=== PATIENT | female | born 1960 | race Two or more races ===

== ENCOUNTER 2023-04-28 09:04 | Outpatient (CLI) | payer OTHER ==
[2023-04-28 11:05] LABS: PH,URINE 5.5 (5.0-8.0); URINE APPEARANCE Clear; URINE BILIRRUBIN Negative (NEGATIVE); URINE BLOOD NHT; URINE COLOR Yellow; URINE GLUCOSE Negative (NEGATIVE); URINE LEUKOCYTE Negative; URINE NITRATE Negative; URINE PROTEIN Negative (NEGATIVE); URINE UROBILINOGEN 0.2 E.U./dl
[2023-04-28 11:06] LABS: URINE BACTERIA 46.6 uL (0.0-1933); URINE EPITHELIAL CELLS 4.4 uL (0.0-38.8); URINE RBC 35.6 uL (0.0-20.8); URINE WBC 2.3 uL (0.0-23.2)
[2023-04-28 11:07] LABS: INR 0.97; PARTIAL THROMBOPLASTIN TIME 28.9 SECONDS (22.0-34.0); PROTHROMBIN TIME 10.2 SECONDS (9.0-11.5)
[2023-04-28 11:25] LABS: ALBUMIN 3.6 gm/dL (3.4-5.0); BILIRUBIN TOTAL 0.67 mg/dL (0.3-1.2); CALCIUM 9.1 mg/dL (8.5-10.1); CREATININE SERUM 0.64 mg/dL (0.55-1.02); GFR 93.72; POTASSIUM 4.2 mEq/L (3.5-5.1); TOTAL PROTEIN 7.6 gm/dL (6.4-8.2)
[2023-04-28 12:49] LABS: HEMATOCRIT 39.8 % (36.0-45.00); HEMOGLOBIN 12.6 g/dL (12.0-15.00); MEAN CELL VOLUME 82.9 fL (80.00-100.00); MEAN CORPUSCULAR HEMOGLOBIN 26.3 pg (27.00-32.0); MEAN CORPUSCULAR HGB CONC 31.7 g/dl (32.0-36.0); PLATELET COUNT 212 K/uL (150-450); RED CELL DISTRIBUTION WIDTH 14.9 % (11.5-14.5)
[2023-04-30 13:15] LABS: MANUAL PLATELET COUNT 290
[2023-04-30 13:16] LABS: PLATELET ESTIMATE NORMAL (NORMAL)
[2023-04-30 13:41] LABS: FOLIC ACID > 20.00 ng/ml (4.78-20)
== END 2023-04-28 09:20 | disposition home or self-care (01) ==
LOC: LAB 09:04
PROVIDERS: ATTEND Obstetrics & Gynecology Gynecology
DX: Z01.812 Encounter for preprocedural laboratory examination (principal); Z01.818 Encounter for other preprocedural examination; D50.8 Other iron deficiency anemias; R79.9 Abnormal finding of blood chemistry, unspecified; I10 Essential (primary) hypertension; R74.02 Elevation of levels of lactic acid dehydrogenase [LDH]; K76.89 Other specified diseases of liver; D51.8 Other vitamin B12 deficiency anemias; B20 Human immunodeficiency virus [HIV] disease; B17.9 Acute viral hepatitis, unspecified; Z11.59 Encounter for screening for other viral diseases; B02.9 Zoster without complications; D51.3 Other dietary vitamin B12 deficiency anemia; Z18.12 Retained nonmagnetic metal fragments

== ENCOUNTER → 2023-04-28 | Outpatient (CLI) | payer OTHER | END | disposition home or self-care (01) | LOC: RAD 09:43 | PROVIDERS: ATTEND Obstetrics & Gynecology Gynecology | DX: R07.89 Other chest pain (principal) ==

== ENCOUNTER → 2023-05-07 08:58 | Outpatient (CLI) | payer OTHER | END | disposition home or self-care (01) | LOC: EKG 08:58 | PROVIDERS: ATTEND Obstetrics & Gynecology Gynecology | DX: Z01.810 Encounter for preprocedural cardiovascular examination (principal) ==

== ENCOUNTER → 2024-06-28 11:57 | Outpatient (CLI) | payer OTHER ==
[2024-06-28 13:21] LABS: HEMATOCRIT 38.3 % (36.0-45.00); HEMOGLOBIN 12.7 g/dL (12.0-15.00); MEAN CELL VOLUME 81.8 fL (80.00-100.00); MEAN CORPUSCULAR HEMOGLOBIN 27.2 pg (27.00-32.0); MEAN CORPUSCULAR HGB CONC 33.2 g/dl (32.0-36.0); PLATELET COUNT 213 K/uL (150-450); RED BLOOD COUNT 4.68 M/uL (4.00-6.00); RED CELL DISTRIBUTION WIDTH 14.9 % (11.5-14.5)
[2024-06-28 13:37] LABS: PROTHROMBIN TIME 10.9 SECONDS (9.0-11.5)
[2024-06-28 13:42] LABS: ALBUMIN 3.7 gm/dL (3.4-5.0); BILIRUBIN TOTAL 0.79 mg/dL (0.3-1.2); CALCIUM 8.9 mg/dL (8.5-10.1); CREATININE SERUM 0.6 mg/dL (0.55-1.02); GFR 100.64; GLOBULINA 4.1 G/DL (2.4-3.5); POTASSIUM 3.82 mEq/L (3.5-5.1); TOTAL PROTEIN 7.8 gm/dL (6.4-8.2)
[2024-06-28 14:06] LABS: URINE APPEARANCE Cloudy; URINE BILIRRUBIN Negative (NEGATIVE); URINE BLOOD Negative; URINE COLOR Yellow; URINE GLUCOSE Negative (NEGATIVE); URINE KETONE Trace (NEGATIVE); URINE LEUKOCYTE Negative; URINE NITRATE Negative; URINE PROTEIN Negative (NEGATIVE); URINE UROBILINOGEN 0.2 E.U./dl
[2024-06-28 14:08] LABS: URINE BACTERIA 960.8 uL (0.0-1933); URINE EPITHELIAL CELLS 28.6 uL (0.0-38.8); URINE RBC 37.8 uL (0.0-20.8); URINE WBC 13.7 uL (0.0-23.2)
[2024-06-28 14:24] LABS: URINE CAST 0.88 uL (0.0-1.40)
== END | disposition home or self-care (01) ==
LOC: LAB 11:57
PROVIDERS: ATTEND Student in an Organized Health Care Education/Training Program
DX: D64.9 Anemia, unspecified (principal); R79.1 Abnormal coagulation profile; E07.89 Other specified disorders of thyroid; N39.0 Urinary tract infection, site not specified

== ENCOUNTER 2024-06-30 07:27 | Outpatient (CLI) | payer OTHER | END 2024-06-30 07:35 | disposition home or self-care (01) | LOC: RAD 07:27 | PROVIDERS: ATTEND Student in an Organized Health Care Education/Training Program | DX: I10 Essential (primary) hypertension (principal) ==